=== PATIENT | male | born 1950 | race Two or more races ===

== ENCOUNTER 2024-08-09 05:00 | Day surgery (SDC) | payer OTHER ==
[2024-07-31 10:21] LABS: URINE APPEARANCE Clear; URINE BILIRRUBIN Negative (NEGATIVE); URINE BLOOD Trace; URINE COLOR Yellow; URINE GLUCOSE Negative (NEGATIVE); URINE KETONE Negative (NEGATIVE); URINE LEUKOCYTE Negative; URINE NITRATE Negative; URINE PROTEIN Trace (NEGATIVE); URINE UROBILINOGEN 0.2 E.U./dl
[2024-07-31 10:21] LABS: HEMATOCRIT 44.7 % (39.0-48.0); HEMOGLOBIN 15.5 g/dL (13-16.00); MEAN CELL VOLUME 90.6 fL (80.0-100.00); MEAN CORPUSCULAR HEMOGLOBIN 31.3 pg (27.00-32.0); MEAN CORPUSCULAR HGB CONC 34.6 g/dl (32.0-36.0); PLATELET COUNT 208 K/uL (150-450); RED BLOOD COUNT 4.94 M/uL (4.00-6.00); RED CELL DISTRIBUTION WIDTH 13.5 % (11.5-14.5)
[2024-07-31 10:24] VITALS: BP 161/83
[2024-07-31 10:26] LABS: URINE EPITHELIAL CELLS 1.8 uL (0.0-38.8); URINE RBC 11.9 uL (0.0-20.8); URINE WBC 2.8 uL (0.0-23.2)
[2024-07-31 10:42] LABS: URINE BACTERIA 3.6 uL (0.0-1933)
[2024-07-31 10:51] LABS: INR 1.03; PARTIAL THROMBOPLASTIN TIME 28.2 SECONDS (22.0-34.0); PROTHROMBIN TIME 11.2 SECONDS (9.0-11.5)
[2024-07-31 10:59] LABS: CALCIUM 9.9 mg/dL (8.5-10.1); CREATININE SERUM 1.05 mg/dL (0.70-1.30); GFR 69.43; PHOSPHOROUS 2.7 mg/dL (2.5-4.9); POTASSIUM 5.29 mEq/L (3.5-5.1)
[~2024-08-09] VITALS: Ht 175.3 cm; Wt 88.9 kg
[~2024-08-09 05:00] MED LIST: AMLODIPINE-OLM1 EAC2; AMLODIPINE-OLM1 EAC2 PO; COZAAR100 MG PO; PROSCAR5 MG PO
[2024-08-09] MEDS ORDERED: EPINEPHRINE HCL/PF 1 MG/ML AMPUL ONE (07:11)
[2024-08-09] MEDS ORDERED: POVIDONE-IODINE 118 ML BOTT TOP ONE (07:11)
[2024-08-09] MEDS ORDERED: LIDOCAINE HCL 1%/EPINEPHRINE 20ML VIAL IJ ONE (07:11)
[2024-08-09] MEDS ORDERED: CEFAZOLIN SODIUM 1,000 MG VIAL ONE (07:12)
[2024-08-09] MEDS ORDERED: CIPROFLOXACIN2.5 ML OTIC (08:50)
[2024-08-09] MEDS ORDERED: CEPHALEXIN500 M1 PO (08:50)
[2024-08-09] MEDS ORDERED: MORPHINE SULFATE 4 MG/ML VIAL IV ONE (10:00)
== END 2024-08-09 13:30 | disposition home or self-care (01) ==
LOC: CIR.AMB 05:00
PROVIDERS: ATTEND Otolaryngology Otology & Neurotology
DX: H72.01 Central perforation of tympanic membrane, right ear (principal); H90.11 Conductive hearing loss, unilateral, right ear, with unrestricted hearing on the contralateral side; I10 Essential (primary) hypertension; J44.9 Chronic obstructive pulmonary disease, unspecified